=== PATIENT | male | born 1990 | race Caucasian/White ===

== ENCOUNTER 2023-12-16 08:12 | Emergency (ER) | payer MEDICAID, SELFPAY ==
[2023-12-16 08:18] VITALS: BP 145/94; PULSE 76; RESP 15; TEMP 36.6; O2SAT 98; BMI 31.0
--- NOTE | 2023-12-16 08:28 | PC.PHAR ---
pt states he takes no prescription medications or otc medications
--- NOTE | 2023-12-16 08:33 | ED_ITS ---
HPI - Abdominal Pain 2 General: Chief Complaint: Abdominal Pain Stated Complaint: bloody stool Time Seen by Provider: 12/16/23 08:20 Source: patient Mode of arrival: ambulatory History of Present Illness: 33-year-old male seen emergency room wit h difficulty with bowel movements. He states he feels like he got a obstruction. He is safe and able to have only small bowel movements last couple days he is small amounts of blood the past with it as well when he does strain to have a bowel movement been nauseous but no vomiting denies dysuria urgency or frequency no previous abdominal surgeries. MD elicited complaint: abdominal pain Pertinent past history: constipation Onset (ago): day(s) Pain Consistency: intermittent Location: Diffuse Severity: mild Quality: cramping and fullness Radiation: none Migration to: no migration Exacerbating factors: nothing Relieving factors: bowel movement Associated Symptoms: Reports bloating, constipation, GI cramping, hematochezia (Scant, intermittent), nausea and poor appetite; Denies anorexia, belching, change in bowel habits, change in stool character, chills, coffee ground emesis, diarrhea, dyspepsia, dysuria, excessive flatus, fever(s), heartburn, hematuria, hematemesis, fecal incontinence, loose stools, melena, syncope and vomiting Review of Systems 2 Const: Denies: fever(s) or chills Card: Denies: chest pain or syncope Resp: Denies: dyspnea GI: Reports: abdominal pain, nausea, constipation, bloating, GI cramping and hematochezia (Scant, intermittent); Denies: vomiting, hematemesis, coffee ground emesis, heartburn, diarrhea, belching, excessive flatus, fecal incontinence, change in bowel habits, change in stool character or melena : Reports: flank pain; Denies: dysuria, urinary frequency, urinary urgency or hematuria Musc: Denies: neck pain or back pain Skin/Breast: Denies: rash Physical Exam 2 Const: COMMON NORMALS: no acute distress GENERAL APPEARANCE: cooperative and comfortable ORIENTATION/CONSCIOUSNESS: Yes awake, Yes oriented to person, Yes oriented to place and Yes oriented to time HENMT: COMMON NORMALS: normocephalic, atraumatic and hearing grossly normal bilaterally HEAD & SCALP: normocephalic and atraumatic Resp: COMMON NORMALS: normal respiratory effort, No retractions, No use of accessory muscles and clear to auscultation bilaterally AUSCULTATION: clear to auscultation bilaterally Cardio: COMMON NORMALS: regular rate, regular rhythm and No murmurs present (Cardio) RATE: regular rate RHYTHM: regular rhythm GI: COMMON NORMALS: Soft to palpation and No hepatosplenomegaly present A USCULTATION: Yes normoactive bowel sounds PALPATION: Yes Soft to palpation, No Tenderness to palpation present (GI), No Guarding due to palpation present (GI) and Yes No hepatosplenomegaly present Extremity: COMMON NORMALS: normal to inspection, capillary refill normal, no clubbing, cyanosis or edema, no calf tenderness and no pedal edema Neuro: SENSORIUM/ORIENTATION: Yes oriented to person, Yes oriented to place and Yes oriented to time Skin: COMMON NORMALS: no rashes or lesions noted GENERAL SKIN EXAM: no rashes or lesions noted Course 2 Vital Signs: Vital signs: Vital Signs Temperature 97.8 F 12/16/23 08:18 Pulse Rate 76 12/16/23 08:18 Respiratory Rate 15 12/16/23 08:18 Blood Pressure 145/94 12/16/23 08:18 Pulse Oximetry 98 12/16/23 08:18 Oxygen Delivery Me thod Room Air 12/16/23 08:18 MDM - Abdominal Pain Medical Decision Making Labs and imaging reviewed no sign of bowel obstruction either on clinical exam or on acute abdominal series. Patient having some rectal irritation of the constipation and he comes to the rectal bleeding he is describing with bowel movements. KUB showed constipation. Treat with lactulose follow-up with primary care if not improving or if worsens Medical Records I reviewed the patient's medical records. Lab Data I reviewed the patient's lab results. 12/16/23 08:45 12/16/23 08:45 Labs/Radiology: Laboratory Results WBC 5.04 10^3/uL (3.29-11.43) 12/16/23 08:45 RBC 4.95 10^6/uL (3.85-5.65) 12/16/23 08:45 Hgb 14.70 g/dL (11.27-16.99) 12/16/23 08:45 Hct 42.9 % (37-53) 12/16/23 08:45 MCV 86.7 fl (82-101) 12/16/23 08:45 MCH 29.7 pg (27-33) 12/16/23 08:45 MCHC 34.3 g/dL (30-55) 12/16/23 08:45 RDW 12.4 % (12.1-15.1) 12/16/23 08:45 Plt Count 253 10^3/cmm (157-399) 12/16/23 08:45 MPV 9.9 fL (7.4-10.4) 12/16/23 08:45 Neut % (Auto) 46.2 % 12/16/23 08:45 Lymph % (Auto) 31.7 % 12/16/23 08:45 [place] % (Auto) 17.9 % 12/16/23 08:45 Eos % (Auto) 3.0 % 12/16/23 08:45 Baso % (Auto) 0.8 % 12/16/23 08:45 Neut # (Auto) 2.33 10^3/uL (1.8-7.7) 12/16/23 08:45 Lymph # (Auto) 1.6 10^3/uL (0.8-4.8) 12/16/23 08:45 [place] # (Auto) 0.9 10^3/uL (0.2-0.9) 12/16/23 08:45 Eos # (Auto) 0.2 10^3/uL (0.0-0.8) 12/16/23 08:45 Baso # (Auto) 0.0 10^3/uL (0.0-0.1) 12/16/23 08:45 Nucleated RBC % (auto) 0 % 12/16/23 08:45 Nucleated RBCs # 0.0 /100WBC 12/16/23 08:45 PT 13.50 SECONDS (12.1-14.9) 12/16/23 08:45 INR 1.00 (0.8-1.2) 12/16/23 08:45 APTT 32.9 SECONDS (23.9-36.7) 12/16/23 08:45 Sodium 138 mmol/L (136-145) 12/16/23 08:45 Potassium 3.9 mmol/L (3.5-5.1) 12/16/23 08:45 Chloride 102 mmol/L (98-107) 12/16/23 08:45 Carbon Dioxide 25 mmol/L (22-29) 12/16/23 08:45 Anion Gap 14.9 (5-19) 12/16/23 08:45 BUN 12 mg/dL (6-20) 12/16/23 08:45 Creatinine 0.9 mg/dL (0.7-1.2) 12/16/23 08:45 GFR Calculation 97.8 mL/min (90-130) 12/16/23 08:45 Glucose 102 mg/dL (65-115) 12/16/23 08:45 Calculated Osmolality 286 mOsm/kg (285-295) 12/16/23 08:45 Calcium 9.5 mg/dL (8.5-10.5) 12/16/23 08:45 Total Bilirubin 0.6 mg/dL (0.15-1.2) 12/16/23 08:45 AST 17 U/L (0-40) 12/16/23 08:45 ALT 24 U/L (0-41) 12/16/23 08:45 Alkaline Phosphatase 78 U/L (40-130) 12/16/23 08:45 Total Protein 7.2 g/dL (6.6-8.7) 12/16/23 08:45 Albumin 4.1 g/dL (3.5-5.2) 12/16/23 08:45 Globulin 3.1 g/dL (1.3-4.6) 12/16/23 08:45 All radiology interpretation(s) finalized by discharge Discharge Plan Discharge Patient Disposition: Home Clinical Impression: Constipation Condition: Stable Prescriptions: New lactulose 20 gram/30 mL solution 30 g PO Q2H 1 Days Qty: 540 0RF Rx Instructions: until desired laxative effect Discharge Orders: Discharge ED (Routine); Ordered 12/16/23 Ordered By: Piero Mojica Discharge Diet: Usual diet Discharge Activity: Increase activity as tolerated Patient Instructions: Constipation (ED), Opioid Safety, Pain Management Activity Restrictions/Additional Instructions: Thank you for choosing [facility] for your healthcare needs today. Please realize this is an emergency room and that we are providing you with a medical screening exam and this may not be complete and all inclusive of all the testing and or work up that you may need to determine your ailment or severity of your illness. It is very important that you follow up as instructed or that you return to the Emergency Department should you have concerns or if your condition changes or worsens in any way. Coding Level of Care Code ED Sales Training Representative for Drea Pal
--- NOTE | 2023-12-16 08:40 | XR_ITS ---
WS: [id number] Exam: XR acute abdomen series [id number] Date/Time of Exam: 12/16/2023 8:40 AM Reason For Exam: abd pain AP portable chest. No priors. The lungs are fully expanded and clear. Normal cardiomediastinal silhouette. No pleural effusions. Qu estionable coronary artery calcifications.. Bony structures are intact. IMPRESSION: 1. No acute cardiopulmonary process. Flat and erect abdomen. No bowel obstruction or free air. No sign of organ enlargement. Normal bowel gas pattern. Regional bony elements appear normal. IMPRESSION: 1. No acute abdominal finding.
[2023-12-16 08:54] LABS: Basophils % 0.8 %; Eosinophils # 0.2 10^3/uL (0.0-0.8); Hematocrit 42.9 % (37-53); Lymphocytes # 1.6 10^3/uL (0.8-4.8); Lymphocytes % 31.7 %; Mean Corpuscular HGB Conc 34.3 g/dL (30-55); Mean Corpuscular Hemoglobin 29.7 pg (27-33); Mean Corpuscular Volume 86.7 fl (82-101); Mean Platelet Volume 9.9 fL (7.4-10.4); Monocytes # 0.9 10^3/uL (0.2-0.9); Monocytes % 17.9 %; Neutrophils # 2.33 10^3/uL (1.8-7.7); Neutrophils % 46.2 %; Nucleated Red Blood Cells % 0 %; Platelet Count 253 10^3/cmm (157-399); Red Blood Count 4.95 10^6/uL (3.85-5.65); Red Cell Distribution Width 12.4 % (12.1-15.1); White Blood Count 5.04 10^3/uL (3.29-11.43)
[2023-12-16 09:07] LABS: Partial Thromboplastin Time 32.9 SECONDS (23.9-36.7)
[2023-12-16 09:14] LABS: Alanine Aminotransferase 24 U/L (0-41); Albumin Level 4.1 g/dL (3.5-5.2); Alkaline Phosphatase 78 U/L (40-130); Anion Gap 14.9 (5-19); Aspartate Amino Transferase 17 U/L (0-40); Blood Urea Nitrogen 12 mg/dL (6-20); Calcium 9.5 mg/dL (8.5-10.5); Carbon Dioxide 25 mmol/L (22-29); Chloride 102 mmol/L (98-107); Globulin 3.1 g/dL (1.3-4.6); Glomerular Filtration Rate 97.8 mL/min (90-130); Glucose 102 mg/dL (65-115); Osmolality Calculated 286 mOsm/kg (285-295); Potassium 3.9 mmol/L (3.5-5.1); Sodium 138 mmol/L (136-145); Total Bilirubin 0.6 mg/dL (0.15-1.2); Total Protein 7.2 g/dL (6.6-8.7)
== END 2023-12-16 10:03 | disposition home or self-care (01) ==
PROVIDERS: Emergency Provider Family Medicine
DX: K59.00 Constipation, unspecified (principal)
CPT/HCPCS: 36415; 74022; 80053; 85025; 85610; 85730; 99284